=== PATIENT | male | born 1980 | race Caucasian/White ===

== ENCOUNTER 2021-10-27 16:40 | Emergency (ER) | payer MEDICAID ==
[~2021-10-27] VITALS: Ht 188 cm; Wt 95.0 kg
[2021-10-27] MEDS ORDERED: acetaminophen 325mg tablet PO STA (17:34)
--- NOTE | 2021-10-27 17:39 | NUR ---
Dr. Kendall calderon aware about the patient,new order noted and carried out.
[2021-10-27 17:55] LABS: CLARITY,URINE CLOUDY (Clear); COLOR,URINE GREEN (Yellow); GLUCOSE, URINE NEGATIVE (Neg); KETONES,URINE >=80 mg/dl (Neg); LEUKOCYTE ESTERASE ,URINE NEGATIVE (Neg); NITRITES, URINE NEGATIVE (Neg); OCCULT BLOOD,URINE LARGE (Neg); PH,URINE >=9.0 (4.8-8.0); PROTEIN,URINE >=300 mg/dl (Neg)
[2021-10-27 17:56] LABS: UA COLLECTION TYPE CLN CATCH MIDSTREAM
[2021-10-27 18:07] LABS: BASOPHILS # (AUTO) 0.1 X10'3 (0-0.2); EOSINOPHILS % (AUTO) 0.2 % (0-6); HEMOGLOBIN 14.3 g/dl (14.0-17.9); LYMPHOCYTES # (AUTO) 0.5 X10'3 (1.1-4.8); LYMPHOCYTES % (AUTO) 5.9 % (21-51); MEAN CORPUSCULAR HEMOGLOBIN 28.2 PG (27.0-31.0); MEAN CORPUSCULAR HGB CONC 34.1 g/dL (33.0-36.5); MEAN CORPUSCULAR VOLUME 82.8 FL (78-98); MEAN PLATELET VOLUME 9.1 FL (7.4-10.4); MONOCYTES # (AUTO) 1.1 X10'3 (0-0.9); MONOCYTES % (AUTO) 13.3 % (2-12); NEUTROPHILS # (AUTO) 6.7 X10'3 (1.8-7.7); NEUTROPHILS % (AUTO) 79.6 % (42-75); PLATELET COUNT 326 X10'3 (140-440); RED BLOOD COUNT 5.07 X10'6 (4.70-6.10); RED CELL DISTRIBUTION WIDTH 13.2 % (11.5-14.5); WHITE BLOOD COUNT 8.4 X10'3 (4.5-11.0)
[2021-10-27 18:34] LABS: ALANINE AMINOTRANSFERASE 38 U/L (12-78); ALBUMIN 3.8 G/DL (3.4-5.0); ALKALINE PHOSPHATASE 57 IU/L (46-116); ANION GAP 11 (8-16); ASPARTATE AMINO TRANSFERASE 47 U/L (10-37); BILIRUBIN,TOTAL 0.5 MG/DL (0.1-1.0); BLOOD UREA NITROGEN 7 MG/DL (7-18); BUN/CREATININE RATIO 6.4 (5.4-32.0); CALCIUM 8.6 MG/DL (8.5-10.1); CHLORIDE 97 MMOL/L (99-107); GLUCOSE 105 MG/DL (70-104); LIPASE 86 U/L (73-393); POTASSIUM 3.4 MMOL/L (3.5-5.1); SODIUM 137 MMOL/L (135-145); TOTAL CARBON DIOXIDE 29.2 MMOL/L (24-32); TOTAL PROTEIN 7.6 G/DL (6.4-8.2); eGFR 74 ML/MIN
[2021-10-27 18:44] LABS: BACTERIA,URINE 1+ /HPF (Neg); MUCUS STRANDS FEW /LPF (Neg); RBC,URINE TNTC /HPF (0-2); SQUAMOUS EPITHELIAL CELL,UR FEW /LPF (FEW)
[2021-10-27] MEDS ORDERED: mag hydrox/Alum hydrox/simeth 30ml oral suspension PO ONE (23:35)
[2021-10-28] MEDS ORDERED: HYDROcodone/acetaminophen 10/325mg tab PO ONE (00:05)
[2021-10-28 00:44] VITALS: BP 134/91
[2021-10-28] MEDS ORDERED: ONDA4TAB6 PO (12:31)
[2021-10-28] MEDS ORDERED: HYDR-3965 PO (12:31)
== END 2021-10-28 00:45 | disposition home or self-care (01) ==
LOC: ER 16:41
DX: U07.1 COVID-19 (principal); C80.1 Malignant (primary) neoplasm, unspecified; R18.0 Malignant ascites; R31.9 Hematuria, unspecified; R10.84 Generalized abdominal pain; R14.0 Abdominal distension (gaseous); R50.9 Fever, unspecified; Z72.89 Other problems related to lifestyle; Z88.2 Allergy status to sulfonamides
CPT/HCPCS: 36415; 71046; 74176; 80053; 81001; 83690; 84145; 85025; 87040; 87088; 87635; 99285; C9803

== ENCOUNTER 2021-10-28 11:18 | Emergency (ER) | payer MEDICAID ==
[~2021-10-28] VITALS: Ht 188 cm; Wt 95.5 kg
[2021-10-28 11:42] VITALS: BP 154/109
[2021-10-28] MEDS ORDERED: HYDR-3965 PO (12:31)
[2021-10-28] MEDS ORDERED: ONDA4TAB6 PO (12:31)
== END 2021-10-28 12:55 | disposition home or self-care (01) ==
LOC: ER 11:18
DX: R19.00 Intra-abdominal and pelvic swelling, mass and lump, unspecified site (principal); R50.9 Fever, unspecified; R10.84 Generalized abdominal pain; Z72.89 Other problems related to lifestyle; Z88.2 Allergy status to sulfonamides; Z79.899 Other long term (current) drug therapy
CPT/HCPCS: 99283

== ENCOUNTER 2022-01-05 11:00 | Day surgery (SDC) | payer MEDICAID ==
[2022-01-05] VITALS (10 sets, daily range): BP systolic 117–137; BP diastolic 17–85
[~2022-01-05] VITALS: Ht 188 cm; Wt 89.4 kg
[~2022-01-05 11:00] MED LIST: ONDA4TAB6 PO
[2022-01-05] MEDS ORDERED: normal saline 1000ml 1,000 ML IV SCH (11:25)
[2022-01-05 11:44] LABS: BASOPHILS # (AUTO) 0.1 X10'3 (0-0.2); EOSINOPHILS # (AUTO) 0.2 X10'3 (0-0.9); HEMATOCRIT 39.4 % (42.0-52.0); HEMOGLOBIN 13.2 g/dl (14.0-17.9); LYMPHOCYTES # (AUTO) 1.3 X10'3 (1.1-4.8); MONOCYTES # (AUTO) 1.1 X10'3 (0-0.9)
[2022-01-05 11:45] LABS: BASOPHILS % (AUTO) 1.2 % (0-1); LYMPHOCYTES % (AUTO) 14.9 % (21-51); MEAN CORPUSCULAR HGB CONC 33.6 g/dL (33.0-36.5); MEAN CORPUSCULAR VOLUME 80.2 FL (78-98); MEAN PLATELET VOLUME 8.1 FL (7.4-10.4); NEUTROPHILS # (AUTO) 6.2 X10'3 (1.8-7.7); NEUTROPHILS % (AUTO) 69.9 % (42-75); PLATELET COUNT 545 X10'3 (140-440); RED BLOOD COUNT 4.91 X10'6 (4.70-6.10); RED CELL DISTRIBUTION WIDTH 13.9 % (11.5-14.5); WHITE BLOOD COUNT 8.8 X10'3 (4.5-11.0)
[2022-01-05] MEDS ORDERED: DOCU-342 PO (11:58)
[2022-01-05] MEDS ORDERED: FAMO20TA8 PO (11:58)
[2022-01-05] MEDS ORDERED: OXYC15TA PO (11:58)
[2022-01-05] MEDS ORDERED: PROM25TA14 PO (11:58)
[2022-01-05] MEDS ORDERED: fentaNYL/PF 50MCG/1 ML 2ML syringe ONE ×2 (13:14→14:01)
[2022-01-05] MEDS ORDERED: midazolam 1 mg/ML 2ml injection ONE ×2 (13:14→14:01)
[2022-01-05] MEDS ORDERED: ondansetron/PF 4mg/2ml inj ONE (13:39)
== END 2022-01-05 15:05 | disposition home or self-care (01) ==
LOC: SSTAY O 11:00
PROVIDERS: ATTEND Radiology Vascular & Interventional Radiology
DX: K66.8 Other specified disorders of peritoneum (principal); C48.1 Malignant neoplasm of specified parts of peritoneum; R18.0 Malignant ascites; Z88.2 Allergy status to sulfonamides; Z79.899 Other long term (current) drug therapy; F12.90 Cannabis use, unspecified, uncomplicated; Z87.891 Personal history of nicotine dependence; Z20.822 Contact with and (suspected) exposure to COVID-19
CPT/HCPCS: 49083; 49180; 77012; 85025; 87635; 99152; 99153; C9803; J2250; J2405; J3010; 20206

== ENCOUNTER 2022-11-04 08:44 | Day surgery (SDC) | payer MEDICAID ==
[~2022-11-04] VITALS: Ht 188 cm; Wt 96.4 kg
[~2022-11-04 08:44] MED LIST changes: +DOCU-342 PO; +FAMO20TA8 PO; -ONDA4TAB6 PO; +OXYC15TA PO; +PROM25TA14 PO
[2022-11-04 09:00] VITALS: BP 116/74
[2022-11-04] MEDS ORDERED: MSC30T PO (09:02)
[2022-11-04] MEDS ORDERED: LIDOcaine 1% 30ml preserv. free vial SQ STA (09:07)
[2022-11-04] MEDS ORDERED: albumin 25% 100mL bottle x 1 IV PRN (09:30)
== END 2022-11-04 10:00 | disposition home or self-care (01) ==
LOC: SSTAY O 08:44
PROVIDERS: ATTEND Radiology Vascular & Interventional Radiology
DX: C45.1 Mesothelioma of peritoneum (principal); R18.0 Malignant ascites; Z88.2 Allergy status to sulfonamides; Z79.899 Other long term (current) drug therapy
CPT/HCPCS: 49083; 76705; A6258; A6402